=== PATIENT | male | born 1945 | race Caucasian/White ===

== ENCOUNTER 2021-08-05 13:59 | Emergency (ER) | payer MEDICARE, SELFPAY ==
--- NOTE | 2021-08-05 14:02 | ED.URI ---
HPI - URI/Sore Throat General Chief Complaint: Upper Respiratory Infection Stated Complaint: Cough,Runny Nose,Headache Time Seen by Provider: 08/05/21 14:02 Source: patient Mode of arrival: ambulatory Limitations: no limitations History of Present Illness HPI Narrative: Mr. Dumont is a 76-year-old male patient presenting to the clinic today with complaints of cough, runny nose, mild shortness of breath, and headache x10 days. He reports no fever or chills. States his nose is like a faucet and has a lot of sinus pressure. Feels that the sinus drainage is going in the back of his throat and causing him to cough. No known exposure to anyone with COVID, flu, or strep MD elicited complaint: cough, rhinorrhea, nasal congestion and other (Headache) Related Data Home Medications Medication Instructions Recorded Confirmed alprazolam 0.5 mg PO PRN PRN 08/05/21 08/05/21 aspirin [Adult Low Dose Aspirin] 81 mg PO DAILY 08/05/21 08/05/21 atorvastatin 80 mg PO DAILY 08/05/21 08/05/21 bromfenac [Prolensa] 2 drp EACH EYE DAILY 08/05/21 08/05/21 citalopram 20 mg PO DAILY 08/05/21 08/05/21 famotidine 20 mg PO DAILY 08/05/21 08/05/21 fenofibrate nanocrystallized 145 mg PO DAILY 08/05/21 08/05/21 lisinopril 10 mg PO DAILY 08/05/21 08/05/21 metoprolol succinate 25 mg PO DAILY 08/05/21 08/05/21 Allergies Allergy/AdvReac Type Severity Reaction Status Date / Time No Known Allergies Allergy Verified 08/05/21 14:05 Review of Systems Review of Systems: Pertinent positives per HPI. Patient denies any fever, chills, rash, visual changes, dizziness, chest pain, palpitations, nausea, vomiting, diarrhea, constipation, abdominal pain, or any urinary issues. PMFSH Comments At the time of my signature, I reviewed and agree with the nursing past medical, surgical, social, and family history. There is no relevant family history pertinent to the patient complaint. Exam Narrative: General: Well-developed, well nourished, in no apparent distress Head: Normocephalic, atraumatic Eyes: Pupils equally round and reactive to light bilaterally, EOM intact, sclera and conjunctive clear, no discharge, lids normal Ears: TMs intact and dull, ear canals clear, no drainage, grossly hearing normal. Nose: Nares patent, green nasal discharge, moderate inflammation with white striae to the anterior and posterior turbinates, sinus tenderness to the maxillary and frontal sinuses. Mouth: Oral pharynx without lesions or masses, good dentition, MMM. Postnasal drip Neck: Supple, trachea midline, no enlargement of anterior or posterior cervical nodes, no thyroid masses or goiter palpable. Cardio: Regular rate and rhythm, s1 and s2 normal, no murmur appreciated. Resp: Moderate airflow with expiratory wheezing, no rhonchi, rales, or rubs Course Course Emergency Course: Portions of this record may have been created with voice recognition software. Level of Care: Express Care Visit Vital Signs Vital signs: Vital signs reviewed MDM - URI/Sore Throat MDM Narrative Medical decision making narrative: At the time of visit patient is resting comfortably on the exam table. Patient reports cough, runny nose, sinus headache, and congestion x10 days. Assessment suggestive of acute bronchitis and acute rhinosinusitis. I will treat with a round of prednisone, Augmentin, and a albuterol inhaler. Other supportive measures and discharge instructions were reviewed with patient he voiced understanding. Differential Diagnosis Differential diagnosis: Likely upper respiratory infection, croup, otitis media, sinusitis, viral infection, bronchitis, influenza and pharyngitis Discharge Plan Discharge Clinical Impression: Acute bronchitis, Acute bacterial rhinosinusitis Patient Disposition: Home, Self-Care Condition: Stable Instructions: Antibiotic Form, Acute Bronchitis (ED), Rhinosinusitis (ED) Additional Instructions: Take prescription medications only as prescribed-prednisone, al
[2021-08-05 14:13] VITALS: BP 143/77; PULSE 79; RESP 18; TEMP 36.3; O2SAT 98
== END 2021-08-05 14:23 | disposition home or self-care (01) ==
PROVIDERS: Emergency Provider Nurse Practitioner Family; PCP Internal Medicine
DX: J20.9 Acute bronchitis, unspecified (principal); J01.90 Acute sinusitis, unspecified; Z79.82 Long term (current) use of aspirin; E78.00 Pure hypercholesterolemia, unspecified; I10 Essential (primary) hypertension; K21.9 Gastro-esophageal reflux disease without esophagitis; M19.90 Unspecified osteoarthritis, unspecified site; F41.9 Anxiety disorder, unspecified; F32.A Depression, unspecified; Z95.5 Presence of coronary angioplasty implant and graft; H26.9 Unspecified cataract
CPT/HCPCS: 99213; G0463

== ENCOUNTER 2024-01-26 09:42 | Emergency (ER) | payer MEDICARE, SELFPAY ==
--- NOTE | 2024-01-26 09:58 | ED.EYEPROB ---
HPI - Eye Problem General Chief complaint: Eye Problems Stated complaint: LT eye infection Time Seen by Provider: 01/26/24 10:05 Source: patient, RN notes reviewed and old records reviewed Mode of arrival: ambulatory Limitations: no limitations History of Present Illness HPI Narrative: 78-year-old male presents to the [facility] with concerns of a left eye infection. States on Monday he started with some irritation, woke up this morning with a ?Goopy. ? eye is red, purulent discharge, crusted shut. Patient denies any visual changes Related Data Home Medications Medication Instructions Recorded Confirmed alprazolam 0.5 mg tablet 0.5 mg PO PRN PRN Anxiety 08/05/21 01/26/24 aspirin 81 mg tablet 81 mg PO DAILY 08/05/21 01/26/24 atorvastatin 80 mg tablet 80 mg PO DAILY 08/05/21 01/26/24 bromfenac 0.07 % eye drops 2 drp EACH EYE DAILY 08/05/21 01/26/24 (Prolensa) citalopram 20 mg tablet 40 mg PO DAILY 08/05/21 01/26/24 famotidine 20 mg tablet 20 mg PO DAILY 08/05/21 01/26/24 fenofibrate nanocrystallized 145 145 mg PO DAILY 08/05/21 01/26/24 mg tablet lisinopril 10 mg tablet 10 mg PO DAILY 08/05/21 01/26/24 metoprolol succinate 25 mg 25 mg PO DAILY 08/05/21 01/26/24 tablet,extended release 24 hr prednisolone acetate 1 % eye 1 drp LEFT EYE QID 01/26/24 01/26/24 drops,suspension Allergies Allergy/AdvReac Type Severity Reaction Status Date / Time No Known Allergies Allergy Verified 01/26/24 09:58 Review of Systems Review of Systems: All systems reviewed & are unremarkable except as noted in HPI and below Constitutional: Constitutional: Reports no additional constitutional complaints Eyes: Eyes: Reports as per HPI ENT: Reports system reviewed and no additional complaints, except as documented Cardiovascular: Cardiovascular: Reports no additional cardiovascular complaints, Denies chest pain and Denies dyspnea Respiratory: Respiratory: Reports no additional respiratory complaints, Denies chest congestion, Denies cough and Denies dyspnea Gastrointestinal: Gastrointestinal: Reports no additional gastrointestinal complaints, Denies abdominal pain, Denies nausea and Denies vomiting Musculoskeletal: Musculoskeletal: Reports no additional musculoskeletal complaints Integumentary/Breasts: Skin/Breast: Reports system reviewed and no additional complaints, except as docu Neurologic: Reports system reviewed and no additional complaints, except as documented Psychiatric: Psychiatric: Reports no additional psychiatric complaints Allergic/Immunologic: Allergic/Immunologic: Reports no additional allergic/immunologic complaints PMFSH Comments At the time of my signature, I reviewed and agree with the nursing past medical, surgical, social, and family history. There is no relevant family history pertinent to the patient complaint. Exam Const: General: cooperative, healthy appearing, comfortable, no acute distress, well developed, alert and well nourished Nutritional Appearance: well nourished Orientation/consciousness: patient oriented x3 Limitations: no limitations HENMT: Head: normal to inspection Ears: hearing grossly normal bilaterally and external ears normal Face/Nose/Sinus: Normal external nose present, normal facial exam and face symmetric Face and sinus: normal facial exam and face symmetric Eyes: General: appearance normal, both eyes and all related structures Alignment and Position: alignment normal Periorbital: periorbital findings normal Conjunctivae: conjunctival abnormality left conjunctival injection and discharge Neck: Neck: normal visual inspection, full ROM, no lymphadenopathy and no meningeal signs Chest: Chest palpation & inspection: normal inspection of the chest Resp: Effort & Inspection: normal respiratory effort and able to speak in complete sentences Auscultation: clear to auscultation bilaterally, no crackles, no rales, no rhonchi and no wheezes Cardio: Rate: regular rate Rhythm: reg
[2024-01-26 10:03] VITALS: BP 114/61; PULSE 74; RESP 17; TEMP 35.9; O2SAT 98
== END 2024-01-26 10:13 | disposition home or self-care (01) ==
PROVIDERS: Emergency Provider Nurse Practitioner; PCP Internal Medicine
DX: H10.32 Unspecified acute conjunctivitis, left eye (principal); Z79.899 Other long term (current) drug therapy; Z79.82 Long term (current) use of aspirin
CPT/HCPCS: 99213; G0463

== ENCOUNTER 2024-10-01 09:37 | Emergency (ER) | payer MEDICARE, SELFPAY ==
--- NOTE | ~2024-10-01 | XR_ITS ---
EXAM/ PROCEDURE: [id number] - 10/01/2024 10:05 CDT HISTORY: 79 years old Male with fall 5 days ago, anterior upper rib pain/bruising COMPARISON: None available TECHNIQUE: Four view(s) FINDINGS/ IMPRESSION: There are no fractures or dislocations.Joint spaces are within normal limits. 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 Degenerative changes are seen. Atherosclerot ic calcifications are seen in the aorta. Cholecystectomy clips are seen. Reviewed, dictated and finalized at location A.
[2024-10-01 09:47] VITALS: BP 142/74; PULSE 69; RESP 18; TEMP 36.8; O2SAT 98
--- NOTE | 2024-10-01 10:10 | ED.FALL ---
HPI - Fall General Chief Complaint: Fall Stated Complaint: Rib Pain / Fall Time Seen by Provider: 10/01/24 10:00 Source: patient and RN notes reviewed Mode of arrival: ambulatory Limitations: no limitations History of Present Illness HPI Narrative: 79-year-old male presents Express Care complaining of fall approximately 5 days ago. Patient stated tripped over his foot fell landed on his left side bruising his left upper ribs. Patient is complaining of left upper anterior rib pain in bruising. Patient denies any in his head, loss of consciousness, neck pain, back pain, or any other injuries. Patient denies being on any blood thinners. Patient denies any headaches, vision changes, blurry vision, focal weakness, slurred speech, facial droop, or any other complaints. Patient states his rib pain is worse when he moves his left arm or when he coughs. Patient denies any pain in his left shoulder. Patient's history of hypertension and hyperlipidemia. Related Data Home Medications ?Medication ?Instructions ?Recorded ?Confirmed ?Last Taken ?Type alprazolam 0.5 mg tablet 0.5 mg PO PRN PRN Anxiety 08/05/21 01/26/24 Unknown History aspirin 81 mg tablet 81 mg PO DAILY 08/05/21 01/26/24 Unknown History atorvastatin 80 mg tablet 80 mg PO DAILY 08/05/21 01/26/24 Unknown History bromfenac 0.07 % eye drops 2 drp EACH EYE DAILY 08/05/21 01/26/24 Unknown History (Prolensa) citalopram 20 mg tablet 40 mg PO DAILY 08/05/21 01/26/24 Unknown History famotidine 20 mg tablet 20 mg PO DAILY 08/05/21 01/26/24 Unknown History fenofibrate nanocrystallized 145 145 mg PO DAILY 08/05/21 01/26/24 Unknown History mg tablet lisinopril 10 mg tablet 10 mg PO DAILY 08/05/21 01/26/24 Unknown History metoprolol succinate 25 mg 25 mg PO DAILY 08/05/21 01/26/24 Unknown History tablet,extended release 24 hr prednisolone acetate 1 % eye 1 drp LEFT EYE QID 01/26/24 01/26/24 Unknown History drops,suspension Allergies Allergy/AdvReac Type Severity Reaction Status Date / Time No Known Allergies Allergy Verified 10/01/24 09:54 Review of Systems Review of Systems: CONSTITUTIONAL: Denies fever, chills, or sweats. EYES: Denies visual changes, blurry vision, redness, or discharge. ENT: Denies rhinorrhea, congestion, sore throat, or otalgia. CARDIOVASCULAR: Denies chest pain, palpitations, loss of consciousness, dizziness, or edema. RESPIRATORY: Denies cough or dyspnea. GASTROINTESTINAL: Denies abdominal pain, nausea, vomiting, or diarrhea. GENITOURINARY: Denies dysuria or hematuria. SKIN: Denies rash or itching. Positive for contusion. MUSCULOSKELETAL: Denies back pain, joint pain, or myalgia. Positive for rib pain. NEUROLOGIC: Denies headache, numbness, seizures, or weakness. PSYCHIATRIC: Denies anxiety or depression. All other systems reviewed are negative, except as documented in HPI. PMFSH Comments At the time of my signature, I reviewed and agree with the nursing past medical, surgical, social, and family history. There is no relevant family history pertinent to the patient complaint. Exam Narrative: GENERAL: This is a well-nourished, well-developed adult, in no apparent distress. They are non ill-appearing, nontoxic appearing. HEAD: normocephalic, atraumatic. EYES: Sclera clear/white. Conjunctiva normal. Vision is grossly intact. Extraocular movements intact. Pupils PERRLA EARS: External ears normal,. Hearing grossly intact. NOSE: External nose normal THROAT: Mucous membranes moist, NECK: Neck supple, non-tender without lymphadenopathy, masses or thyromegaly. No cervical point tenderness, crepitus, or step-offs. No deformities. CARDIOVASCULAR: Regular rate and rhythm without murmurs, gallops, or rubs. CHEST WALL: Area of ecchymosis to the left anterior upper lateral chest wall. There is tenderness to palpation. No crepitus or step-offs. No obvious deformity. No paradoxical movements or flail chest segment. RESPIRATORY: Clear to auscultation. Breath sounds equal bilaterally. No wheezes, rales, or rhonchi. Respiratory rate normal, respiratory effort nonlabored, no respiratory distress SKIN: warm, Dry, intact with no suspicious lesions or rash, good texture and turgor. NEURO: awake, alert, and oriented to person, place and time. There were no obvious focal neurologic abnormalities. EXTREMITIES: No joint tenderness, effusion, or edema noted. Left shoulder: No obvious deformity, bruising, injury, swelling, redness. No bony tenderness. No pain through full range of motion. Neurovascular status intact. Normal sensation. BACK: Nontender without deformity. No CVA tenderness. No thoracic or lumbar point tenderness, crepitus, or step-offs. No deformities. Course Course Emergency Course: Portions of this record may have been created with voice recognition software Level of Care: Express Care Visit Vital Signs Vital signs: Vital Signs Temperature 98.3 F 10/01/24 09:47 Pulse Rate 69 10/01/24 09:47 Respiratory Rate 18 10/01/24 09:47 Blood Pressure 142/74 H 10/01/24 09:47 Pulse Oximetry 98 10/01/24 09:47 Oxygen Delivery Room Air 10/01/24 09:47 Temperature 98.3 F 10/01/24 09:47 Pulse Rate 69 10/01/24 09:47 Respiratory Rate 18 10/01/24 09:47 Blood Pressure 142/74 H 10/01/24 09:47 Pulse Oximetry 98 10/01/24 09:47 Oxygen Delivery Room Air 10/01/24 09:47 Reviewed MDM - Fall MDM Narrative Medical decision making narrative: X-ray negative for any fractures or acute findings. Patient likely has rib contusions. 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 Patient does have a heart history status post stents. Advised patient follow-up with PCP or scrap hooker for further evaluation and management of aorta finding. Will prescribe Flexeril as needed for muscle spasms. Patient also given incentive spirometer. Discussed physical exam findings. Advised supportive measures and signs/symptoms to go to the ER. Pt is appropriate for outpt treatment and f/u. Differential Diagnosis Differential diagnosis: Likely other (Rib contusion, rib fracture, hemothorax, pneumothorax, head injury) Imaging Data Radiologist's impression: FINDINGS/ IMPRESSION: There are no fractures or dislocations.Joint spaces are within normal limits. 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 Degenerative changes are seen. Atherosclerotic calcifications are seen in the aorta. Cholecystectomy clips are seen. Critical Care Time Critical Care Time Critical Care Time: No Discharge Plan Discharge Clinical Impression: Contusion of rib on left side, Fall Patient Disposition: Home Condition: Stable Instructions: Rib Contusion (ED) Additional Instructions: Your x-ray was negative for any rib fractures or acute findings. 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 Please follow-up with your PCP or scrap hooker for further evaluation and management about these findings. It is likely you have rib contusions. Please use the incentive spirometer while awake every hour on the hour, doing 10 deep breaths each time to prevent pneumonia. You may take Tylenol or ibuprofen as needed for pain. Use the Flexeril as needed for muscle spasms. Do not drive or operate machinery while taking Flexeril as it may make you drowsy. Follow-up with PCP in 3-5 days. You developed any chest pain, shortness of breath, fevers, ripping sensation in your chest to back, or any other concerns please go to the ER immediately. Patient Language: Belgian Prescriptions: New cyclobenzaprine 5 mg tablet 5 mg PO HS Qty: 5 0RF No Action atorvastatin 80 mg tablet 80 mg PO DAILY alprazolam 0.5 mg tablet 0.5 mg PO PRN PRN (Reason: Anxiety) citalopram 20 mg tablet 40 mg PO DAILY famotidine 20 mg tablet 20 mg PO DAILY lisinopril 10 mg tablet 10 mg PO DAILY metoprolol succinate 25 mg tablet extended release 24 hr 25 mg PO DAILY fenofibrate nanocrystallized 145 mg tablet 145 mg PO DAILY bromfenac [Prolensa] 0.07 % drops 2 drp EACH EYE DAILY Adult Low Dose Aspirin 81 mg Tablet 81 mg PO DAILY prednisolone acetate 1 % drops,suspension 1 drp LEFT EYE QID ciprofloxacin HCl 0.3 % drops See Rx Instructions EACH EYE .COMPLEX Qty: 2.5 0RF Rx Instructions: put 1-2 drps in affected eye(s) every 2hr up to 8 times/day x2days; then 4 times/day x5days Follow-up/Referrals: Rufus,Yair Hernández MD [Primary Care Provider] - Time of Disposition: 10:41
== END 2024-10-01 10:48 | disposition home or self-care (01) ==
PROVIDERS: PCP Internal Medicine
DX: S20.212A Contusion of left front wall of thorax, initial encounter (principal); W01.0XXA Fall on same level from slipping, tripping and stumbling without subsequent striking against object, initial encounter; I10 Essential (primary) hypertension; E78.5 Hyperlipidemia, unspecified; Z79.82 Long term (current) use of aspirin
CPT/HCPCS: 71101; 99213; G0463